=== PATIENT | male | born 1970 | race African-American/Black ===

== ENCOUNTER 2017-11-29 11:22 | Inpatient (IN) | payer OTHER ==
[2017-11-29 11:41] VITALS: BMI 29.1
--- NOTE | 2017-11-29 15:01 | HP ---
CIWA Score - CIWA Score Nausea/Vomitin Muscle Tremors: 2 Anxiety: 1-Mildly Anxious Agitation: 1-Slight > Activity Paroxysmal Sweats: 2 Orientation: 0-Oriented Tacttile Disturbances: 2-Mild Itch/Numbness/Burn Auditory Disturbances: 0-None Visual Disturbances: 0-None Headache: 2-Mild CIWA-Ar Total Score: [address] [facility] Chief Complaint: ETOH withdrawal symptoms Allergies/Adverse Reactions: Allergies Allergy/AdvReac Type Severity Reaction Status Date / Time No Known Allergies Allergy Verified 11/29/17 11:52 History of Present Illness: Patient presents with ETOH withdrawal symptoms. Patient started drinking at age 13. Drinks up to 1/2 litre of Randi Lam and 12 24 ounce cans of coors light. Pt has seizures from ETOH withdrawals. Last seizure 09/2017. Last drink was this morning at 8am. Patient also smokes cocaine since age 31. Last time he used cocaine was this morning. Smokes up to 400-500 dollars daily. PMH asthma. Denies SI/HI and suicide attempts. - Ebola screening Have you traveled outside of the country in the last 21 days: No Have you had contact with anyone from an Ebola affected area: No Have you been sick,other than usual withdrawal symptoms: No Do you have a fever: No - Review of Systems Constitutional: Chills, Changes in sleep, Unintentional Wgt. Loss EENT: reports: No Symptoms Reported Respiratory: reports: No Symptoms reported Cardiac: reports: No Symptoms Reported GI: reports: Diarrhea, Nausea, Poor Fluid Intake, Vomiting, Abdominal cramping : reports: No Symptoms Reported Musculoskeletal: reports: Back Pain Integumentary: reports: Sweating Neuro: reports: Headache, Numbness, Seizure, Tremors Endocrine: reports: Unexplained Weight Loss Hematology: reports: No Symptoms Reported Psychiatric: reports: Orientated x3, Anxious, Depressed Patient History - Patient Medical History Hx Anemia: No Hx Asthma: Yes (PT IS ON MDI) Hx Chronic Obstructive Pulmonary Disease (COPD): No Hx Cancer: No Hx Cardiac Disorders: No Hx Congestive Heart Failure: No Hx Hypertension: No Hx Hypercholesterolemia: No Hx Pacemaker: No HX Cerebrovascular Accident: No Hx Seizures: Yes (SEPTEMBER 2017 R/T ALCOHOL WITHDRAWAL) Hx Dementia: No Hx Diabetes: No Hx Gastrointestinal Disorders: No Hx Liver Disease: No Hx Genitourinary Disorders: No Hx Sexually Transmitted Disorders: No Hx Renal Disease (ESRD): No Hx Thyroid Disease: No Hx Human Immunodeficiency Virus (HIV): No (11/21/17 and reported negative. Refused testing) Hx Hepatitis C: No (Refused testing) Hx Depression: No Hx Suicide Attempt: No (DENIES S/H IDEATIONS) Hx Bipolar Disorder: No Hx Schizophrenia: No - Patient Surgical History Past Surgical History: No Hx Neurologic Surgery: No Hx Cataract Extraction: No Hx Cardiac Surgery: No Hx Lung Surgery: No Hx Breast Surgery: No Hx Breast Biopsy: No Hx Abdominal Surgery: No Hx Appendectomy: No Hx Cholecystectomy: No Hx Genitourinary Surgery: No Hx Orthopedic Surgery: No Anesthesia Reaction: No - PPD History Documented Results: Negative w/proof Implanted On Prior R Admission?: Yes Date: 02/14/12 Results: NEGATIVE PPD to be Administered?: Yes - Smoking Cessation Smoking history: Current every day smoker Have you smoked in the past 12 months: Yes Aproximately how many cigarettes per day: 20 Hx Chewing Tobacco Use: No Initiated information on smoking cessation: Yes 'Breaking Loose' booklet given: 11/29/17 - Substance & Tx. History Hx Alcohol Use: Yes Hx Substance Use: Yes Substance Use Type: Alcohol, Cocaine Hx Substance Use Treatment: Yes (Last detox here 2011) - Substances Abused Alcohol Route: Oral Frequency: Daily Amount used: 1/2 LITER RANDI TIEN, 2-6PACKS OF 24 OUNCES OF COORS Age of first use: 13 Date of Last Use: 11/29/17 Cocaine Route: Oral Frequency: Daily Amount used: $500 Age of first use: 31 Date of Last Use: 11/29/17 Family Disease History - Family Disease History Family Disease History: Heart Disease: Mother (, dementia) Admission Physical Exam S - Vital Signs Vital Signs: Vital Signs - 24 hr 11/29/17 11:38 Temperature 97.8 F Pulse Rate 73 Respiratory 18 Rate Blood Pressure 155/79 - Physical General Appearance: Yes: No Apparent Distress, Appropriately Dressed, Tremorous , Sweating, Anxious HEENTM: Yes: EOMI, Hearing grossly Normal, Normal ENT Inspection, Normocephalic , Normal Voice, DOMENIC, Pharynx Normal Respiratory: Yes: Chest Non-Tender, Lungs Clear, Normal Breath Sounds, No Respiratory Distress, No Accessory Muscle Use Neck: Yes: Within Normal Limits, No masses,lesions,Nodules, Supple Breast: Yes: Breast Exam Deferred Cardiology: Yes: Regular Rhythm, Regular Rate, S1, S2 Abdominal: Yes: Normal Bowel Sounds, Non Tender, Soft Genitourinary: Yes: Within Normal Limits Back: Yes: Normal Inspection, Muscle Spasm Musculoskeletal: Yes: full range of Motion, Gait Steady, Back pain Extremities: Yes: Normal Inspection, Normal Range of Motion, Non-Tender, Tremors Neurological: Yes: rn medical surgical II-XII NML intact, Fully Oriented, Alert, Motor Strength 5/5, Normal Response, Depressed Affect Integumentary: Yes: Normal Color, Warm, Moist Lymphatic: Yes: Within Normal Limits - Diagnostic (1) Alcohol dependence with uncomplicated withdrawal Current Visit: Yes Status: Acute (2) Asthma Current Visit: Yes Status: Chronic Qualifiers: Asthma severity: mild (3) Anxiety Current Visit: Yes Status: Acute (4) Tobacco dependence Current Visit: Yes Status: Chronic Cleared for Admission S - Detox or Rehab [facility] Level of Care: Medically Managed Detox Regimen/Protocol: Valium S Breath Alcohol Content Breath Alcohol Content: 0 Urine Drug Screen - Results Drug Screen Negative: No Urine Drug Screen Results: LUIGI-Cocaine
[2017-11-29] MEDS ORDERED: LOPERAMIDE HCL 2 MG CAPSULE PO PRN (15:11)
[2017-11-29] MEDS ORDERED: MENTHOL/PHENOL 1 EACH UD MM PRN (15:11)
[2017-11-29] MEDS ORDERED: MAGNESIUM HYDROX 2400MG/30ML ORAL SUSPENSION 30 ML CUP PO PRN (15:11)
[2017-11-29] MEDS ORDERED: MAG HYDROX/AL HYDROX/SIMETH 30 ML UNIT-DOSE CUP PO PRN (15:11)
[2017-11-29] MEDS ORDERED: MAGNESIUM CITRATE 300 ML BOTTLE PO PRN (15:11)
[2017-11-29] MEDS ORDERED: P-EPHED 60MG/TRIPROLIDI 2.5MG TABLET PO PRN (15:11)
[2017-11-29] MEDS ORDERED: ACETAMINOPHEN 325 MG TABLET (FP) PO PRN (15:11)
[2017-11-29] MEDS ORDERED: IBUPROFEN 400 MG TABLET (FP) PO PRN (15:11)
[2017-11-29] MEDS ORDERED: guaiFENesin/D-METHORPHAN HB 10 ML UNIT-DOSE CUPS PO PRN (15:11)
[2017-11-29] MEDS ORDERED: hydrOXYzine PAMOATE 50 MG CAPSULE (FP) PO PRN (15:11)
[2017-11-29] MEDS ORDERED: NICOTINE POLACRILEX 2 MG GUM BUC PRN (15:11)
[2017-11-29] MEDS ORDERED: ALBUTEROL SO4 18 GM HFA INHALER IH PRN (15:14)
[2017-11-29] MEDS ORDERED: chlordiazePOXIDE HCL 25 MG CAPSULE PO PRN (18:27)
[2017-11-29] MEDS ORDERED: chlordiazePOXIDE HCL 25 MG CAPSULE PO ONE (19:00)
[2017-11-29] MEDS ORDERED: MELATONIN 5 MG TABLETS PO PRN (22:00)
[2017-11-29 22:27] LABS: URINE APPEARANCE CLEAR; URINE BILIRUBIN NEGATIVE (<2.0 mg/dL); URINE COLOR LTYELLOW; URINE GLUCOSE (UA) NEGATIVE (NEGATIVE); URINE KETONE NEGATIVE (NEGATIVE); URINE LEUK ESTERASE TRACE (NEGATIVE); URINE NITRITE NEGATIVE (NEGATIVE); URINE PROTEIN NEGATIVE (NEGATIVE); URINE UROBILINOGEN NEGATIVE mg/dL (0.2-1.0)
[2017-11-29 22:40] LABS: EPI CELLS RARE /HPF (FEW); URINE MUCUS RARE
[2017-11-29] MEDS: chlordiazePOXIDE HCL 25 MG CAPSULE PO SCH (22:43)
[2017-11-29] MEDS: THIAMINE HCL 100 MG TABLET (FP) PO SCH (22:44)
[2017-11-30] MEDS: chlordiazePOXIDE HCL 25 MG CAPSULE PO SCH ×4 (05:23→22:15)
--- NOTE | 2017-11-30 09:23 | EKG ---
Test Reason : Blood Pressure : / mmHG Vent. Rate : 067 BPM Atrial Rate : 067 BPM P-R Int : 132 ms QRS Dur : 086 ms QT Int : 394 ms P-R-T Axes : 034 070 049 degrees QTc Int : 416 ms NORMAL SINUS RHYTHM NORMAL ECG NO PREVIOUS ECGS AVAILABLE Confirmed by GIANNA SILVERMAN, ROCIO ([id number]) on 11/30/2017 9:23:05 AM Referred By: Confirmed By:ROCIO KATZ MD
[2017-11-30 09:57] LABS: HEMATOCRIT 41.4 % (35.4-49); HEMOGLOBIN 14.1 GM/dL (11.7-16.9); MCH 30.2 pg (25.7-33.7); MEAN CELL VOLUME 88.9 fl (80-96); MEAN PLT VOLUME 11.9 fl (7.5-11.1); PLATELET COUNT 148 K/MM3 (134-434); RBC 4.66 M/mm3 (4.00-5.60); WHITE BLOOD COUNT 6.1 K/mm3 (4.0-10.0)
[2017-11-30 10:38] LABS: ALBUMIN 3.4 g/dl (3.4-5.0); ANION GAP 6 (8-16); BLOOD UREA NITROGEN 19 mg/dL (7-18); CALCIUM 8.8 mg/dL (8.5-10.1); CHLORIDE 105 mmol/L (98-107); CO2 29 mmol/L (21-32); GLUCOSE,RANDOM 98 mg/dL (74-106); POTASSIUM 4.2 mmol/L (3.5-5.1); SODIUM 140 mmol/L (136-145)
[2017-11-30 10:42] LABS: ALK PHOS 101 U/L (45-117); BILIRUBIN,TOTAL 0.3 mg/dL (0.2-1.0); CREATININE 1.4 mg/dL (0.7-1.3); SGOT/AST 15 U/L (15-37); SGPT/ALT 19 U/L (12-78); TOT PROT 7.1 g/dl (6.4-8.2)
[2017-11-30] MEDS: PRENATAL VITAMINS W/ FOLIC ACID TABLET (FP) PO SCH (10:43)
[2017-11-30] MEDS: NICOTINE 21 MG/24 HOURS TOPICAL PATCH TD SCH (10:44)
--- NOTE | 2017-11-30 21:08 | PN ---
[facility] CIWA - CIWA Score Nausea/Vomitin-No Nausea/No Vomiting Muscle Tremors: 2 Anxiety: 4-Mod. Anxious/Guarded Agitation: 3 Paroxysmal Sweats: 3 Orientation: 0-Oriented Tacttile Disturbances: 1-Very Mild Itch/Numbness Auditory Disturbances: 0-None Visual Disturbances: 2-Mild Sensitivity Headache: 0-None Present CIWA-Ar Total Score: 15 [facility] Progress Note (SOAP) Subjective: Fatigue, Anxious, Sweating, Tremors. Objective: PATIENT A & O X 3. NO ACUTE DISTRESS. 11/30/17 21:04 Vital Signs Temperature 96.7 F L 11/30/17 17:47 Pulse Rate 62 11/30/17 17:47 Respiratory Rate 18 11/30/17 17:47 Blood Pressure 120/69 11/30/17 17:47 O2 Sat by Pulse Oximetry (%) Laboratory Tests 11/29/17 11/30/17 11/30/17 15:40 06:20 06:20 WBC 6.1 RBC 4.66 Hgb 14.1 Hct 41.4 MCV 88.9 MCH 30.2 MCHC 34.0 RDW 13.0 Plt Count 148 MPV 11.9 H Sodium 140 Potassium 4.2 Chloride 105 Carbon Dioxide 29 Anion Gap 6 L BUN 19 H D Creatinine 1.4 H D Creat Clearance w eGFR 54.09 Random Glucose 98 Calcium 8.8 Total Bilirubin 0.3 AST 15 ALT 19 Alkaline Phosphatase 101 D Total Protein 7.1 Albumin 3.4 Urine Color Ltyellow Urine Appearance Clear Urine pH 6.0 Ur Specific [place] 1.011 Urine Protein Negative Urine Glucose (UA) Negative Urine Ketones Negative Urine Blood Negative Urine Nitrite Negative Urine Bilirubin Negative Urine Urobilinogen Negative Ur Leukocyte Esterase Trace Urine WBC (Auto) 2 Urine RBC (Auto) <1 Ur Epithelial Cells Rare Urine Mucus Rare LABS NOTED. RPR RESULT PENDING. 11/30/17 21:06 Assessment: 11/30/17 21:04 WITHDRAWAL SYMPTOMS. Plan: CONTINUE DETOX. INCREASE DAILY PO FLUID INTAKE. D/C MAGNESIUM-CONTAINING MEDS. FOR ABNORMAL ADMISSION RENAL LAB VALUES. BMP ON 12/02/2017 FOR ABNORMAL ADMISSION RENAL LAB VALUES.
[2017-11-30] MEDS: THIAMINE HCL 100 MG TABLET (FP) PO SCH (22:15)
[2017-12-01] MEDS: chlordiazePOXIDE HCL 25 MG CAPSULE PO SCH ×3 (06:11→17:57)
[2017-12-01] MEDS: PRENATAL VITAMINS W/ FOLIC ACID TABLET (FP) PO SCH (10:43)
[2017-12-01] MEDS: NICOTINE 21 MG/24 HOURS TOPICAL PATCH TD SCH (10:45)
--- NOTE | 2017-12-01 12:45 | PN ---
[facility] CIWA - CIWA Score Nausea/Vomitin-No Nausea/No Vomiting Muscle Tremors: 2 Anxiety: 2 Agitation: 2 Paroxysmal Sweats: 2 Orientation: 0-Oriented Tacttile Disturbances: 1-Very Mild Itch/Numbness Auditory Disturbances: 0-None Visual Disturbances: 0-None Headache: 0-None Present CIWA-Ar Total Score: 9 [facility] Progress Note (SOAP) Subjective: interrupted sleep, anxious, weight loss Objective: 12/01/17 12:43 Vital Signs Temperature 97.0 F L 12/01/17 09:07 Pulse Rate 62 12/01/17 09:07 Respiratory Rate 18 12/01/17 09:07 Blood Pressure 111/71 12/01/17 09:07 O2 Sat by Pulse Oximetry (%) Laboratory Last Values WBC 6.1 K/mm3 (4.0-10.0) 11/30/17 06:20 RBC 4.66 M/mm3 (4.00-5.60) 11/30/17 06:20 Hgb 14.1 GM/dL (11.7-16.9) 11/30/17 06:20 Hct 41.4 % (35.4-49) 11/30/17 06:20 MCV 88.9 fl (80-96) 11/30/17 06:20 MCH 30.2 pg (25.7-33.7) 11/30/17 06:20 MCHC 34.0 g/dl (32.0-35.9) 11/30/17 06:20 RDW 13.0 % (11.9-15.9) 11/30/17 06:20 Plt Count 148 K/MM3 (134-434) 11/30/17 06:20 MPV 11.9 fl (7.5-11.1) H 11/30/17 06:20 Sodium 140 mmol/L (136-145) 11/30/17 06:20 Potassium 4.2 mmol/L (3.5-5.1) 11/30/17 06:20 Chloride 105 mmol/L (98-107) 11/30/17 06:20 Carbon Dioxide 29 mmol/L (21-32) 11/30/17 06:20 Anion Gap 6 (8-16) L 11/30/17 06:20 BUN 19 mg/dL (7-18) H D 11/30/17 06:20 Creatinine 1.4 mg/dL (0.7-1.3) H D 11/30/17 06:20 Creat Clearance w eGFR 54.09 (>60) 11/30/17 06:20 Random Glucose 98 mg/dL (74-106) 11/30/17 06:20 Calcium 8.8 mg/dL (8.5-10.1) 11/30/17 06:20 Total Bilirubin 0.3 mg/dL (0.2-1.0) 11/30/17 06:20 AST 15 U/L (15-37) 11/30/17 06:20 ALT 19 U/L (12-78) 11/30/17 06:20 Alkaline Phosphatase 101 U/L (45-117) D 11/30/17 06:20 Total Protein 7.1 g/dl (6.4-8.2) 11/30/17 06:20 Albumin 3.4 g/dl (3.4-5.0) 11/30/17 06:20 Urine Color Ltyellow 11/29/17 15:40 Urine Appearance Clear 11/29/17 15:40 Urine pH 6.0 (5.0-8.0) 11/29/17 15:40 Ur Specific [place] 1.011 (1.001-1.035) 11/29/17 15:40 Urine Protein Negative (NEGATIVE) 11/29/17 15:40 Urine Glucose (UA) Negative (NEGATIVE) 11/29/17 15:40 Urine Ketones Negative (NEGATIVE) 11/29/17 15:40 Urine Blood Negative (NEGATIVE) 11/29/17 15:40 Urine Nitrite Negative (NEGATIVE) 11/29/17 15:40 Urine Bilirubin Negative (<2.0 mg/dL) 11/29/17 15:40 Urine Urobilinogen Negative mg/dL (0.2-1.0) 11/29/17 15:40 Ur Leukocyte Esterase Trace (NEGATIVE) 11/29/17 15:40 Urine WBC (Auto) 2 /hpf (3-5) 11/29/17 15:40 Urine RBC (Auto) <1 /hpf (0-3) 11/29/17 15:40 Ur Epithelial Cells Rare /HPF (FEW) 11/29/17 15:40 Urine Mucus Rare 11/29/17 15:40 RPR Titer Nonreactive (NONREACTIVE) 11/30/17 06:20 Assessment: 12/01/17 12:43 AOx3 no apparent distress no adventitious breath sounds full ROM - withdrawal symptoms Plan: increase fluids nutrition consult: weight loss and feels food on the unit not filling continue detox continue to monitor
[2017-12-01 17:19] VITALS: BP 134/88; PULSE 86; TEMP 97.4
--- NOTE | 2017-12-01 17:56 | PN ---
S Progress Note Note: Per RN Pat, pt insisting on leaving. Unreceptive to encouragement or education to stay and refused to wait for provider eval. per RN
--- NOTE | 2017-12-01 17:58 | DS ---
[facility] Detox Discharge Summary Admission Date: 11/29/17 Discharge Date: 12/01/17 - History Additional Comments: pt left AMA Provider did not see pt as he did not want to wait - Physical Exam Results Vital Signs: Vital Signs Temperature 97.4 F L 12/01/17 17:19 Pulse Rate 86 12/01/17 17:19 Respiratory Rate 18 12/01/17 17:19 Blood Pressure 134/88 12/01/17 17:19 O2 Sat by Pulse Oximetry (%) - Medication Discharge Medications: Ambulatory Orders Albuterol Sulfate Inhaler - [Ventolin Hfa Inhaler -] 1 - 2 inh PO QID PRN - AMA Did Patient Leave Against Medical Advice: Yes
[2017-12-01] MEDS ORDERED: chlordiazePOXIDE 5 MG CAPSULE PO SCH (23:00)
[2017-12-02] MEDS ORDERED: chlordiazePOXIDE HCL 10 MG CAPSULE PO SCH (23:00)
== END 2017-12-01 18:49 | disposition left against medical advice (07) | DRG 770 ==
LOC: YASAS 11:22 → Y3N 15:27
PROVIDERS: ADMIT Family Medicine Addiction Medicine; ATTEND Family Medicine Addiction Medicine
PROC: HZ2ZZZZ Detoxification Services for Substance Abuse Treatment (ICD-10-PCS; principal; 2017-11-29)
DX: F10.230 Alcohol dependence with withdrawal, uncomplicated (principal); F17.210 Nicotine dependence, cigarettes, uncomplicated; F41.9 Anxiety disorder, unspecified; J45.20 Mild intermittent asthma, uncomplicated; G40.509 Epileptic seizures related to external causes, not intractable, without status epilepticus; R63.4 Abnormal weight loss; Z68.29 Body mass index [BMI] 29.0-29.9, adult
CPT/HCPCS: 36415; 80053; 81003; 81015; 85027; 86593; 93005; 93010

== ENCOUNTER 2019-04-13 13:20 | Inpatient (IN) | payer OTHER ==
[2019-04-13 14:49] VITALS: BMI 32.3
--- NOTE | 2019-04-13 16:56 | HP ---
CIWA Score Nausea/Vomitin Muscle Tremors: 2 Anxiety: 2 Agitation: 1-Slight > Activity Paroxysmal Sweats: 1-Minimal Palms Moist Orientation: 0-Oriented Tacttile Disturbances: 0-None Auditory Disturbances: 1-Very Mild Visual Disturbances: 1-Very Mild Sensitivity Headache: 2-Mild CIWA-Ar Total Score: 12 - Admission Criteria [facility] Guidelines: Admission for Medically Managed Detox: Requires at least one of the followin. CIWA greater than 12 2. Seizures within the past 24 hours 3. Delirium tremens within the past 24 hours 4. Hallucinations within the past 24 hours 5. Acute intervention needed for co occurring medical disorder 6. Acute intervention needed for co occurring psychiatric disorder 7. Severe withdrawal that cannot be handled at a lower level of care (continued vomiting, continued diarrhea, abnormal vital signs) requiring intravenous medication and/or fluids 8. Admitting History and Physical - Smoking History Smoking history: Current every day smoker Have you smoked in the past 12 months: Yes Aproximately how many cigarettes per day: 20 - Alcohol/Substance Use Hx Alcohol Use: Yes Admission ROS [facility] - HPI Chief Complaint: Detox alcohol Allergies/Adverse Reactions: Allergies Allergy/AdvReac Type Severity Reaction Status Date / Time No Known Allergies Allergy Verified 04/13/19 14:43 History of Present Illness: 48 year old male with a history of asthma, umbilical hernia, and alcohol and cocaine dependence here for alcohol detox. Last here in 11/2017 for detox. Reports being sober for 7 months before relapse. Wants to go to [facility] half-way rehab. Was in hospital at [place] yesterday for dehydration. Alcohol: 1 liter of Arelis Lam daily and 2 6 packs of 24 oz Coors Light, has had withdrawal seizures, started drinking at age 13; has had withdrawal seizure (last one in April). Cocaine: $150 every other day, sniffs; never injected Benzodiazepine: denies Living Situation: lives in [place] [address] with fiance Work: former [employer] Family: has 7 grown children, is close with them Exam Limitations: No Limitations - Ebola screening Have you traveled outside of the country in the last 21 days: No Have you had contact with anyone from an Ebola affected area: No Do you have a fever: No - Review of Systems Constitutional: Chills, Diaphoresis, Loss of Appetite, Night Sweats EENT: reports: Blurred Vision, Nose Congestion, Throat Pain Respiratory: reports: No Symptoms reported Cardiac: reports: No Symptoms Reported GI: reports: Diarrhea, Nausea : reports: No Symptoms Reported Musculoskeletal: reports: No Symptoms Reported Integumentary: reports: No Symptoms Reported Neuro: reports: Headache, Tremors Endocrine: reports: No Symptoms Reported Hematology: reports: No Symptoms Reported Psychiatric: reports: Judgement Intact, Mood/Affect Appropiate, Orientated x3, Anxious Patient History - Patient Medical History Hx Anemia: No Hx Asthma: Yes (PT IS ON MDI) Hx Chronic Obstructive Pulmonary Disease (COPD): No Hx Cancer: No Hx Cardiac Disorders: No Hx Congestive Heart Failure: No Hx Hypertension: No Hx Hypercholesterolemia: No Hx Pacemaker: No HX Cerebrovascular Accident: No Hx Seizures: Yes (SEPTEMBER 2017 R/T ALCOHOL WITHDRAWAL) Hx Dementia: No Hx Diabetes: No Hx Gastrointestinal Disorders: No Hx Liver Disease: No Hx Genitourinary Disorders: No Hx Sexually Transmitted Disorders: No Hx Renal Disease (ESRD): No Hx Thyroid Disease: No Hx Human Immunodeficiency Virus (HIV): No (11/21/17 and reported negative. Refused testing) Hx Hepatitis C: No (Refused testing) Hx Depression: No Hx Suicide Attempt: No (DENIES S/H IDEATIONS) Hx Bipolar Disorder: No Hx Schizophrenia: No - Patient Surgical History Past Surgical History: No Hx Neurologic Surgery: No Hx Cataract Extraction: No Hx Cardiac Surgery: No Hx Lung Surgery: No Hx Breast Surgery: No Hx Breast Biopsy: No Hx Abdominal Surgery: No Hx Appendectomy: No Hx Cholecystectomy: No Hx Genitourinary Surgery: No Hx Section: No Hx Orthopedic Surgery: No Anesthesia Reaction: No - PPD History Date: 12/01/17 Results: NEGATIVE - Smoking Cessation Smoking history: Current every day smoker Have you smoked in the past 12 months: Yes Aproximately how many cigarettes per day: 20 Hx Chewing Tobacco Use: No Initiated information on smoking cessation: Yes 'Breaking Loose' booklet given: 04/13/19 - Substances abused Alcohol Substance route: Oral Frequency: Daily Amount used: 1 liter of arelis lam & 12 coors light Age of first use: 13 Date of last use: 04/13/19 Cocaine Substance route: Inhalation Frequency: Daily Amount used: $100-150 Age of first use: 31 Date of last use: 04/11/19 Admission Physical Exam [facility] - Vital Signs Vital Signs: Vital Signs - 24 hr 04/13/19 14:44 Temperature 99.0 F Pulse Rate 85 Respiratory 20 Rate Blood Pressure 124/68 - Physical General Appearance: Yes: No Apparent Distress, Nourished, Appropriately Dressed HEENTM: Yes: EOMI Respiratory: Yes: Chest Non-Tender, Lungs Clear Breast: Yes: Within Normal Limits Cardiology: Yes: Regular Rhythm, Regular Rate Abdominal: Yes: Normal Bowel Sounds, Non Tender, Flat, Soft Extremities: Yes: Normal Capillary Refill, Normal Inspection, Normal Range of Motion, Non-Tender 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, Fully Oriented, Alert, Motor Strength 5/5, Normal Mood/Affect Integumentary: Yes: Dry, Warm - Diagnostic (1) Alcohol dependence with uncomplicated withdrawal Current Visit: No Status: Acute (2) Anxiety Current Visit: No Status: Acute (3) Asthma Current Visit: No Status: Chronic Qualifiers: Asthma severity: mild Asthma persistence: intermittent Asthma complication type: uncomplicated Qualified Code(s): J45.20 - Mild intermittent asthma, uncomplicated Cleared for Admission [facility] - Detox or Rehab [facility] Level of Care: Medically Managed Breathalyzer - Breathalyzer Breathalyzer: 0 Urine Drug Screen - Test Device Lot number: [id number] Expiration date: 11/14/20 - Control Is test valid?: Yes - Results Drug screen NEGATIVE: No Urine drug screen results: LUIGI-Cocaine, BZO-Benzodiazepines Inpatient Rehab Admission - Rehab Decision to Admit Inpatient rehab admission?: No
[2019-04-13] MEDS ORDERED: chlordiazePOXIDE HCL 25 MG CAPSULE PO PRN (17:13)
[2019-04-13] MEDS ORDERED: MAG HYDROX/AL HYDROX/SIMETH 30 ML UNIT-DOSE CUP PO PRN (17:13)
[2019-04-13] MEDS ORDERED: ACETAMINOPHEN 325 MG TABLET (FP) PO PRN (17:13)
[2019-04-13] MEDS ORDERED: MAGNESIUM HYDROX 2400MG/30ML ORAL SUSPENSION 30 ML CUP PO PRN (17:13)
[2019-04-13] MEDS ORDERED: BISMUTH SUBSALICYLATE 524 MG/30 ML UD PO PRN (17:13)
[2019-04-13] MEDS ORDERED: MAGNESIUM CITRATE 300 ML BOTTLE PO PRN (17:13)
[2019-04-13] MEDS ORDERED: hydrOXYzine PAMOATE 25 MG CAPSULE (FP) PO PRN (17:13)
[2019-04-13] MEDS ORDERED: IBUPROFEN 400 MG TABLET (FP) PO PRN (17:13)
[2019-04-13] MEDS ORDERED: chlordiazePOXIDE HCL 25 MG CAPSULE PO ONE (17:13)
[2019-04-13] MEDS ORDERED: METHOCARBAMOL 500 MG TABLET PO PRN (17:13)
[2019-04-13] MEDS ORDERED: ALBUTEROL SO4 8 GM HFA INHALER IH PRN (17:14)
--- NOTE | 2019-04-13 17:18 | PN ---
Teaching Attending Note Name of Resident: Spencer Jensen ATTENDING PHYSICIAN STATEMENT I saw and evaluated the patient. I reviewed the resident's note and discussed the case with the resident. I agree with the resident's findings and plan as documented. SUBJECTIVE: 48 yo here for alcohol detox. Was seen at [facility] yaritza- given benzo here for detox. h/o withdrawal Sz when he abruptly stopped alcohol Also uses cocaine. OBJECTIVE: Vital Signs - 24 hr 04/13/19 14:44 Temperature 99.0 F Pulse Rate 85 Respiratory 20 Rate Blood Pressure 124/68 alert and oriented ASSESSMENT AND PLAN: alcohol use disorder- alcohol detox protocol
[2019-04-13] MEDS ORDERED: diazePAM 5 MG TABLET PO ONE (18:00)
[2019-04-13] MEDS: THIAMINE HCL 100 MG TABLET (FP) PO SCH (22:29)
[2019-04-13] MEDS: diazePAM 5 MG TABLET PO SCH (22:29)
[2019-04-13] MEDS: MENTHOL/PHENOL 1 EACH UD MM PRN (22:31)
[2019-04-13] MEDS: ACETAMINOPHEN 325 MG TABLET (FP) PO PRN (22:47)
[2019-04-13] MEDS ORDERED: chlordiazePOXIDE HCL 25 MG CAPSULE PO SCH (23:00)
[2019-04-14] MEDS: diazePAM 5 MG TABLET PO SCH ×4 (06:31→22:13)
[2019-04-14] MEDS: MENTHOL/PHENOL 1 EACH UD MM PRN ×4 (06:52→13:36)
[2019-04-14] MEDS: ACETAMINOPHEN 325 MG TABLET (FP) PO PRN (06:55)
[2019-04-14 09:55] LABS: HEMATOCRIT 42.1 % (35.4-49); HEMOGLOBIN 13.8 GM/dL (11.7-16.9); MCH 29.9 pg (25.7-33.7); MCHC 32.7 g/dl (32.0-35.9); MEAN CELL VOLUME 91.3 fl (80-96); MEAN PLT VOLUME 10.6 fl (7.5-11.1); PLATELET COUNT 157 K/MM3 (134-434); RBC 4.61 M/mm3 (4.00-5.60); RDW 13.5 % (11.9-15.9); WHITE BLOOD COUNT 8.6 K/mm3 (4.0-10.0)
[2019-04-14 10:13] LABS: ALBUMIN 3.2 g/dl (3.4-5.0); BILIRUBIN,TOTAL 0.3 mg/dL (0.2-1); CALCIUM 8.8 mg/dL (8.5-10.1); CREATININE 1.4 mg/dL (0.55-1.3); POTASSIUM 4.8 mmol/L (3.5-5.1); TOT PROT 6.9 g/dl (6.4-8.2)
[2019-04-14] MEDS: PRENATAL VITAMINS W/ FOLIC ACID TABLET (FP) PO SCH (10:39)
--- NOTE | 2019-04-14 14:19 | PN ---
[facility] CIWA - CIWA Score Nausea/Vomitin-Mild Nausea/No Vomiting Muscle Tremors: 2 Anxiety: 2 Agitation: 2 Paroxysmal Sweats: No Perspiration Orientation: 0-Oriented Tacttile Disturbances: 1-Very Mild Itch/Numbness Auditory Disturbances: 0-None Visual Disturbances: 0-None Headache: 2-Mild CIWA-Ar Total Score: 10 S Progress Note (SOAP) Subjective: alert,irritable,anxious,interrupted sleep,tremor Objective: 04/14/19 14:17 Vital Signs Temperature 97.8 F 04/14/19 13:40 Pulse Rate 54 L 04/14/19 13:40 Respiratory Rate 16 04/14/19 13:40 Blood Pressure 105/59 L 04/14/19 13:40 O2 Sat by Pulse Oximetry (%) Laboratory Last Values WBC 8.6 K/mm3 (4.0-10.0) 04/14/19 08:15 RBC 4.61 M/mm3 (4.00-5.60) 04/14/19 08:15 Hgb 13.8 GM/dL (11.7-16.9) 04/14/19 08:15 Hct 42.1 % (35.4-49) 04/14/19 08:15 MCV 91.3 fl (80-96) 04/14/19 08:15 MCH 29.9 pg (25.7-33.7) 04/14/19 08:15 MCHC 32.7 g/dl (32.0-35.9) 04/14/19 08:15 RDW 13.5 % (11.9-15.9) 04/14/19 08:15 Plt Count 157 K/MM3 (134-434) 04/14/19 08:15 MPV 10.6 fl (7.5-11.1) D 04/14/19 08:15 Sodium 142 mmol/L (136-145) 04/14/19 08:15 Potassium 4.8 mmol/L (3.5-5.1) 04/14/19 08:15 Chloride 108 mmol/L (98-107) H 04/14/19 08:15 Carbon Dioxide 28 mmol/L (21-32) 04/14/19 08:15 Anion Gap 5 MMOL/L (8-16) L 04/14/19 08:15 BUN 20.0 mg/dL (7-18) H 04/14/19 08:15 Creatinine 1.4 mg/dL (0.55-1.3) H 04/14/19 08:15 Est GFR (CKD-EPI)AfAm 67.89 04/14/19 08:15 Est GFR (CKD-EPI)NonAf 58.58 04/14/19 08:15 Random Glucose 91 mg/dL (74-106) 04/14/19 08:15 Calcium 8.8 mg/dL (8.5-10.1) 04/14/19 08:15 Total Bilirubin 0.3 mg/dL (0.2-1) 04/14/19 08:15 AST 26 U/L (15-37) 04/14/19 08:15 ALT 31 U/L (13-61) 04/14/19 08:15 Alkaline Phosphatase 105 U/L (45-117) 04/14/19 08:15 Total Protein 6.9 g/dl (6.4-8.2) 04/14/19 08:15 Albumin 3.2 g/dl (3.4-5.0) L 04/14/19 08:15 RPR Titer Nonreactive (NONREACTIVE) 04/14/19 08:15 Assessment: 04/14/19 14:18 withdrawal symptom Plan: continue detox librium regimen,encourage orl fluid
--- NOTE | 2019-04-14 14:22 | PN ---
[facility] Progress Note Note: addendum correction patient is on valium regimen not librium regimen
--- NOTE | 2019-04-14 14:59 | PN ---
[facility] Progress Note Note: patient requests to be seen by a ophthalmic nurse
[2019-04-14] MEDS: THIAMINE HCL 100 MG TABLET (FP) PO SCH (22:12)
[2019-04-14] MEDS: MELATONIN 5 MG TABLETS PO PRN (22:14)
[2019-04-15] MEDS ORDERED: chlordiazePOXIDE HCL 25 MG CAPSULE PO SCH (05:00)
[2019-04-15] MEDS: diazePAM 5 MG TABLET PO SCH ×2 (05:49→17:27)
[2019-04-15] MEDS: MENTHOL/PHENOL 1 EACH UD MM PRN (05:51)
[2019-04-15] MEDS: diazePAM 5 MG TABLET PO PRN ×3 (09:19→23:47)
[2019-04-15] MEDS: PRENATAL VITAMINS W/ FOLIC ACID TABLET (FP) PO SCH (09:20)
--- NOTE | 2019-04-15 14:41 | PN ---
S CIWA - CIWA Score Nausea/Vomitin-No Nausea/No Vomiting Muscle Tremors: 2 Anxiety: 2 Agitation: 2 Paroxysmal Sweats: No Perspiration Orientation: 0-Oriented Tacttile Disturbances: 0-None Auditory Disturbances: 0-None Visual Disturbances: 0-None Headache: 0-None Present CIWA-Ar Total Score: 6 [facility] Progress Note (SOAP) Subjective: 48 years old male admitted on 04/13/19 for alcohol withdrawal sx management treated with valium detox regimen c/o muscle spasm encourage robaxin prn c/o loose stool imodium 4 mg po x 1 Objective: 04/15/19 14:44 Vital Signs Temperature 97.1 F L 04/15/19 13:10 Pulse Rate 64 04/15/19 13:10 Respiratory Rate 18 04/15/19 13:10 Blood Pressure 130/87 04/15/19 13:10 O2 Sat by Pulse Oximetry (%) Laboratory Last Values WBC 8.6 K/mm3 (4.0-10.0) 04/14/19 08:15 RBC 4.61 M/mm3 (4.00-5.60) 04/14/19 08:15 Hgb 13.8 GM/dL (11.7-16.9) 04/14/19 08:15 Hct 42.1 % (35.4-49) 04/14/19 08:15 MCV 91.3 fl (80-96) 04/14/19 08:15 MCH 29.9 pg (25.7-33.7) 04/14/19 08:15 MCHC 32.7 g/dl (32.0-35.9) 04/14/19 08:15 RDW 13.5 % (11.9-15.9) 04/14/19 08:15 Plt Count 157 K/MM3 (134-434) 04/14/19 08:15 MPV 10.6 fl (7.5-11.1) D 04/14/19 08:15 Sodium 142 mmol/L (136-145) 04/14/19 08:15 Potassium 4.8 mmol/L (3.5-5.1) 04/14/19 08:15 Chloride 108 mmol/L (98-107) H 04/14/19 08:15 Carbon Dioxide 28 mmol/L (21-32) 04/14/19 08:15 Anion Gap 5 MMOL/L (8-16) L 04/14/19 08:15 BUN 20.0 mg/dL (7-18) H 04/14/19 08:15 Creatinine 1.4 mg/dL (0.55-1.3) H 04/14/19 08:15 Est GFR (CKD-EPI)AfAm 67.89 04/14/19 08:15 Est GFR (CKD-EPI)NonAf 58.58 04/14/19 08:15 Random Glucose 91 mg/dL (74-106) 04/14/19 08:15 Calcium 8.8 mg/dL (8.5-10.1) 04/14/19 08:15 Total Bilirubin 0.3 mg/dL (0.2-1) 04/14/19 08:15 AST 26 U/L (15-37) 04/14/19 08:15 ALT 31 U/L (13-61) 04/14/19 08:15 Alkaline Phosphatase 105 U/L (45-117) 04/14/19 08:15 Total Protein 6.9 g/dl (6.4-8.2) 04/14/19 08:15 Albumin 3.2 g/dl (3.4-5.0) L 04/14/19 08:15 RPR Titer Nonreactive (NONREACTIVE) 04/14/19 08:15 lab noted Assessment: 04/15/19 14:44 alcohol withdrawal sx Plan: continue valium detox regimen
[2019-04-15] MEDS ORDERED: LOPERAMIDE HCL 2 MG CAPSULE PO ONE (14:43)
[2019-04-15] MEDS ORDERED: diazePAM 5 MG TABLET PO ONE (22:00)
[2019-04-15] MEDS: THIAMINE HCL 100 MG TABLET (FP) PO SCH (22:55)
[2019-04-16] MEDS ORDERED: chlordiazePOXIDE HCL 10 MG CAPSULE PO PRN
[2019-04-16] MEDS ORDERED: chlordiazePOXIDE HCL 10 MG CAPSULE PO SCH (05:00)
[2019-04-16] MEDS: diazePAM 5 MG TABLET PO PRN ×2 (05:59→10:34)
[2019-04-16] MEDS ORDERED: diazePAM 5 MG TABLET PO ONE ×2 (06:00)
[2019-04-16] MEDS: PRENATAL VITAMINS W/ FOLIC ACID TABLET (FP) PO SCH (10:32)
--- NOTE | 2019-04-16 14:24 | PN ---
S CIWA - CIWA Score Nausea/Vomitin-No Nausea/No Vomiting Muscle Tremors: 1-None Visible, but [place] Anxiety: 2 Agitation: 1-Slight > Activity Paroxysmal Sweats: No Perspiration Orientation: 0-Oriented Tacttile Disturbances: 0-None Auditory Disturbances: 0-None Visual Disturbances: 0-None Headache: 0-None Present CIWA-Ar Total Score: 4 BHS Progress Note (SOAP) Subjective: 48 years old male admitted on 04/13/19 for alcohol withdrawal sx management treated with valium detox regimen patient tolerate well feeling better today discuss aftercare with counselor and hand sign writer Objective: 04/16/19 14:29 Vital Signs Temperature 97.2 F L 04/16/19 13:26 Pulse Rate 96 H 04/16/19 13:26 Respiratory Rate 18 04/16/19 13:26 Blood Pressure 119/84 04/16/19 13:26 O2 Sat by Pulse Oximetry (%) Laboratory Last Values WBC 8.6 K/mm3 (4.0-10.0) 04/14/19 08:15 RBC 4.61 M/mm3 (4.00-5.60) 04/14/19 08:15 Hgb 13.8 GM/dL (11.7-16.9) 04/14/19 08:15 Hct 42.1 % (35.4-49) 04/14/19 08:15 MCV 91.3 fl (80-96) 04/14/19 08:15 MCH 29.9 pg (25.7-33.7) 04/14/19 08:15 MCHC 32.7 g/dl (32.0-35.9) 04/14/19 08:15 RDW 13.5 % (11.9-15.9) 04/14/19 08:15 Plt Count 157 K/MM3 (134-434) 04/14/19 08:15 MPV 10.6 fl (7.5-11.1) D 04/14/19 08:15 Sodium 142 mmol/L (136-145) 04/14/19 08:15 Potassium 4.8 mmol/L (3.5-5.1) 04/14/19 08:15 Chloride 108 mmol/L (98-107) H 04/14/19 08:15 Carbon Dioxide 28 mmol/L (21-32) 04/14/19 08:15 Anion Gap 5 MMOL/L (8-16) L 04/14/19 08:15 BUN 20.0 mg/dL (7-18) H 04/14/19 08:15 Creatinine 1.4 mg/dL (0.55-1.3) H 04/14/19 08:15 Est GFR (CKD-EPI)AfAm 67.89 04/14/19 08:15 Est GFR (CKD-EPI)NonAf 58.58 04/14/19 08:15 Random Glucose 91 mg/dL (74-106) 04/14/19 08:15 Calcium 8.8 mg/dL (8.5-10.1) 04/14/19 08:15 Total Bilirubin 0.3 mg/dL (0.2-1) 04/14/19 08:15 AST 26 U/L (15-37) 04/14/19 08:15 ALT 31 U/L (13-61) 04/14/19 08:15 Alkaline Phosphatase 105 U/L (45-117) 04/14/19 08:15 Total Protein 6.9 g/dl (6.4-8.2) 04/14/19 08:15 Albumin 3.2 g/dl (3.4-5.0) L 04/14/19 08:15 RPR Titer Nonreactive (NONREACTIVE) 04/14/19 08:15 lab noted Assessment: 04/16/19 14:29 alcohol withdrawal sx Plan: continue valium detox regimen
[2019-04-16] MEDS ORDERED: LOPERAMIDE HCL 2 MG CAPSULE PO ONE (20:03)
--- NOTE | 2019-04-16 20:05 | PN ---
BHS Progress Note Note: CALL FROM NURSING , PT C/O DIARRHEA , IMODIUM X ONE ORDERED
[2019-04-16] MEDS: THIAMINE HCL 100 MG TABLET (FP) PO SCH (22:27)
[2019-04-16] MEDS: MELATONIN 5 MG TABLETS PO PRN (22:27)
[2019-04-17] MEDS ORDERED: chlordiazePOXIDE HCL 10 MG CAPSULE PO SCH (05:00)
--- NOTE | 2019-04-17 08:42 | DS ---
[facility] Detox Discharge Summary Admission Date: 04/13/19 Discharge Date: 04/17/19 - History Present History: Alcohol Dependence Additional Comments: Patient medically stable, tolerated detox well. Patient to follow up with primary care provider within 1-2 weeks. Patient reports will follow up with after care at [facility] for rehabilitation. Seek medical attention with worsening symptoms are present. Pertinent Past History: Vital Signs Temperature 96.6 F L 04/17/19 06:24 Pulse Rate 62 04/17/19 06:24 Respiratory Rate 18 04/17/19 06:24 Blood Pressure 106/70 04/17/19 06:24 O2 Sat by Pulse Oximetry (%) Laboratory Last Values WBC 8.6 K/mm3 (4.0-10.0) 04/14/19 08:15 RBC 4.61 M/mm3 (4.00-5.60) 04/14/19 08:15 Hgb 13.8 GM/dL (11.7-16.9) 04/14/19 08:15 Hct 42.1 % (35.4-49) 04/14/19 08:15 MCV 91.3 fl (80-96) 04/14/19 08:15 MCH 29.9 pg (25.7-33.7) 04/14/19 08:15 MCHC 32.7 g/dl (32.0-35.9) 04/14/19 08:15 RDW 13.5 % (11.9-15.9) 04/14/19 08:15 Plt Count 157 K/MM3 (134-434) 04/14/19 08:15 MPV 10.6 fl (7.5-11.1) D 04/14/19 08:15 Sodium 142 mmol/L (136-145) 04/14/19 08:15 Potassium 4.8 mmol/L (3.5-5.1) 04/14/19 08:15 Chloride 108 mmol/L (98-107) H 04/14/19 08:15 Carbon Dioxide 28 mmol/L (21-32) 04/14/19 08:15 Anion Gap 5 MMOL/L (8-16) L 04/14/19 08:15 BUN 20.0 mg/dL (7-18) H 04/14/19 08:15 Creatinine 1.4 mg/dL (0.55-1.3) H 04/14/19 08:15 Est GFR (CKD-EPI)AfAm 67.89 04/14/19 08:15 Est GFR (CKD-EPI)NonAf 58.58 04/14/19 08:15 Random Glucose 91 mg/dL (74-106) 04/14/19 08:15 Calcium 8.8 mg/dL (8.5-10.1) 04/14/19 08:15 Total Bilirubin 0.3 mg/dL (0.2-1) 04/14/19 08:15 AST 26 U/L (15-37) 04/14/19 08:15 ALT 31 U/L (13-61) 04/14/19 08:15 Alkaline Phosphatase 105 U/L (45-117) 04/14/19 08:15 Total Protein 6.9 g/dl (6.4-8.2) 04/14/19 08:15 Albumin 3.2 g/dl (3.4-5.0) L 04/14/19 08:15 RPR Titer Nonreactive (NONREACTIVE) 04/14/19 08:15 Patient AOx3 no acute distress EENT WNL No adventitious breath sounds full ROM no gait disturbance No edema or erythema - Physical Exam Results Vital Signs: Vital Signs Temperature 96.6 F L 04/17/19 06:24 Pulse Rate 62 04/17/19 06:24 Respiratory Rate 18 04/17/19 06:24 Blood Pressure 106/70 04/17/19 06:24 O2 Sat by Pulse Oximetry (%) - Treatment Hospital Course: Detox Protocol Followed, Detoxed Safely, Responded well, Discharged Condition Good, Rehab Referral Accepted Patient has Accepted a Rehab Referral to: [id number] - Medication Discharge Medications: Ambulatory Orders Albuterol Sulfate Inhaler - [Ventolin HFA Inhaler -] 1 - 2 inh PO QID PRN - Diagnosis (1) Alcohol dependence with uncomplicated withdrawal Current Visit: Yes Status: Acute (2) Weight loss Current Visit: Yes Status: Acute (3) Asthma Current Visit: No Status: Chronic Qualifiers: Asthma severity: mild Asthma persistence: intermittent Asthma complication type: uncomplicated Qualified Code(s): J45.20 - Mild intermittent asthma, uncomplicated (4) Tobacco dependence Current Visit: Yes Status: Chronic - AMA Did Patient Leave Against Medical Advice: No
[2019-04-17 09:03] VITALS: BP 118/86; PULSE 84; TEMP 96.1
[2019-04-18] MEDS ORDERED: chlordiazePOXIDE HCL 10 MG CAPSULE PO ONE (05:00)
== END 2019-04-17 09:00 | disposition home or self-care (01) | DRG 774 ==
LOC: YASAS 13:20 → Y3N 17:40
PROVIDERS: ADMIT Allergy & Immunology; ATTEND Allergy & Immunology
PROC: HZ2ZZZZ Detoxification Services for Substance Abuse Treatment (ICD-10-PCS; principal; 2019-04-13)
DX: F10.230 Alcohol dependence with withdrawal, uncomplicated (principal); F14.20 Cocaine dependence, uncomplicated; F17.210 Nicotine dependence, cigarettes, uncomplicated; F41.9 Anxiety disorder, unspecified; J45.20 Mild intermittent asthma, uncomplicated; R63.4 Abnormal weight loss; Z68.32 Body mass index [BMI] 32.0-32.9, adult; Z86.69 Personal history of other diseases of the nervous system and sense organs
CPT/HCPCS: 36415; 80053; 85027; 86593

== ENCOUNTER 2019-06-23 08:48 | Inpatient (IN) | payer OTHER ==
[2019-06-23 09:04] VITALS: BMI 33.2
--- NOTE | 2019-06-23 10:36 | HP ---
CIWA Score Nausea/Vomitin Muscle Tremors: 3 Anxiety: 3 Agitation: 3 Paroxysmal Sweats: 1-Minimal Palms Moist Orientation: 0-Oriented Tacttile Disturbances: 1-Very Mild Itch/Numbness Auditory Disturbances: 0-None Visual Disturbances: 0-None Headache: 2-Mild CIWA-Ar Total Score: 15 - Admission Criteria OASAS Guidelines: Admission for Medically Managed Detox: Requires at least one of the followin. CIWA greater than 12 2. Seizures within the past 24 hours 3. Delirium tremens within the past 24 hours 4. Hallucinations within the past 24 hours 5. Acute intervention needed for co occurring medical disorder 6. Acute intervention needed for co occurring psychiatric disorder 7. Severe withdrawal that cannot be handled at a lower level of care (continued vomiting, continued diarrhea, abnormal vital signs) requiring intravenous medication and/or fluids 8. Admitting History and Physical - Admission Chief Complaint: i need help to stop drinking alcohol and cocaine,. i would like to get my life back History of Present Illness: this 49 years old male with alcohol and cocaine dependence,seeking detox, withdrawal symptom, seeking detox, multiple admissions in detox,last [facility] 04/13/19 to 04/17/19 denied seizure denied syncope hypertension non compliance longest sobriety 8 years plan for rehab after detox anxiety History Source: Patient Limitations to Obtaining History: No Limitations - Past Medical History Cardiovascular: Yes: HTN (no medication) Gastrointestinal: Yes: Other (umbilical hernia) Psych: Yes: Anxiety - Smoking History Smoking history: Current every day smoker Have you smoked in the past 12 months: Yes Aproximately how many cigarettes per day: 20 - Alcohol/Substance Use Hx Alcohol Use: Yes History of Substance Use: reports: Cocaine - Social History Usual Living Arrangement: Yes: With Significant Other Occupation: [employer] Admission ROS [facility] Chief Complaint: i need help to get my life together ,need help to stop drinking alcohol,cocaine Allergies/Adverse Reactions: Allergies Allergy/AdvReac Type Severity Reaction Status Date / Time No Known Allergies Allergy Verified 06/23/19 08:57 History of Present Illness: this 49 years old male with alcohol and cocaine dependence,seeking help to stop , denied seizure denied syncope nicotine dependence nicotine dependence history of fx of left ankle and lumbar spine in 2013 longest sobriety 8 years Exam Limitations: No Limitations - Ebola screening Have you traveled outside of the country in the last 21 days: No Have you had contact with anyone from an Ebola affected area: No Do you have a fever: No - Review of Systems Constitutional: Night Sweats, Changes in sleep EENT: reports: Nose Congestion Respiratory: reports: No Symptoms reported, Other (asthma) Cardiac: reports: No Symptoms Reported GI: reports: Nausea, Poor Appetite, Vomiting, Abdominal cramping : reports: No Symptoms Reported Musculoskeletal: reports: Back Pain, Muscle Pain, Other (fx of left ankle,fx of lumbar spine in 2013) Integumentary: reports: Dryness Neuro: reports: Headache, Tremors Endocrine: reports: No Symptoms Reported Hematology: reports: No Symptoms Reported Psychiatric: reports: No Sypmtoms Reported, Judgement Intact, Mood/Affect Appropiate, Orientated x3 Patient History - Patient Medical History Hx Anemia: No Hx Asthma: Yes (on albuterol inhaler) Hx Chronic Obstructive Pulmonary Disease (COPD): No Hx Cancer: No Hx Cardiac Disorders: No Hx Congestive Heart Failure: No Hx Hypertension: Yes (no med) Hx Hypercholesterolemia: No Hx Pacemaker: No HX Cerebrovascular Accident: No Hx Seizures: No Hx Dementia: No Hx Diabetes: No Hx Gastrointestinal Disorders: No Hx Liver Disease: No Hx Genitourinary Disorders: No Hx Sexually Transmitted Disorders: No Hx Renal Disease (ESRD): No Hx Thyroid Disease: No Hx Human Immunodeficiency Virus (HIV): No (05/05 negative) Hx Hepatitis C: No Hx Depression: No Hx Suicide Attempt: No Hx Bipolar Disorder: No Hx Schizophrenia: No Other Medical History: no suicidal,no homicidal,fx of left ankle and lumbar spine - Patient Surgical History Past Surgical History: No Hx Neurologic Surgery: No Hx Cataract Extraction: No Hx Cardiac Surgery: No Hx Lung Surgery: No Hx Breast Surgery: No Hx Breast Biopsy: No Hx Abdominal Surgery: No Hx Appendectomy: No Hx Cholecystectomy: No Hx Genitourinary Surgery: No Hx Section: No Hx Orthopedic Surgery: No Anesthesia Reaction: No - PPD History Previous Implant?: Yes Documented Results: Negative w/proof Date: 04/16/19 Results: NEGATIVE 0 mm PPD to be Administered?: No - Smoking Cessation Smoking history: Current every day smoker Have you smoked in the past 12 months: Yes Aproximately how many cigarettes per day: 20 Hx Chewing Tobacco Use: No Initiated information on smoking cessation: Yes 'Breaking Loose' booklet given: 06/23/19 - Substance & Tx. History Hx Alcohol Use: Yes Hx Substance Use: Yes Substance Use Type: Alcohol, Cocaine Hx Substance Use Treatment: Yes (04/13/19 to 04/17/19 [facility]) - Substances abused Alcohol Substance route: Oral Frequency: Daily Amount used: 1 liter of arelis boyle & 12 coors light Age of first use: 13 Date of last use: 06/23/19 Cocaine Substance route: Inhalation Frequency: 3-6 times per week Amount used: $200-$300 Age of first use: 31 Date of last use: 06/22/19 Admission Physical Exam [facility] - Vital Signs Vital Signs: Vital Signs - 24 hr 06/23/19 08:51 Temperature 97.6 F Pulse Rate 99 H Respiratory 17 Rate Blood Pressure 151/91 - Physical General Appearance: Yes: Moderate Distress, Tremorous, Irritable, Sweating, Anxious HEENTM: Yes: Normal ENT Inspection, DOMENCI, Pharynx Normal Respiratory: Yes: Lungs Clear, Normal Breath Sounds, No Respiratory Distress Neck: Yes: Within Normal Limits, Supple, Trachea in good position Breast: Yes: Within Normal Limits Cardiology: Yes: Within Normal Limits, Regular Rhythm, Regular Rate, S1, S2 Abdominal: Yes: Within Normal Limits, Normal Bowel Sounds, Non Tender, Flat, Soft, Other (umbilical hernia) Genitourinary: Yes: Within Normal Limits Back: Yes: Muscle Spasm Musculoskeletal: Yes: full range of Motion, Back pain, Muscle Pain Extremities: Yes: Tremors Neurological: Yes: manager application II-XII NML intact, Alert, Motor Strength 5/5 Integumentary: Yes: Dry Lymphatic: Yes: Within Normal Limits - Diagnostic (1) Alcohol dependence with uncomplicated withdrawal Current Visit: No Status: Acute (2) Cocaine dependence Current Visit: Yes Status: Acute (3) Weight loss Current Visit: No Status: Acute (4) Asthma Current Visit: No Status: Chronic Qualifiers: Asthma severity: mild Asthma persistence: intermittent Asthma complication type: uncomplicated Qualified Code(s): J45.20 - Mild intermittent asthma, uncomplicated (5) Nicotine dependence Current Visit: Yes Status: Acute (6) Fracture of left ankle Current Visit: Yes Status: Acute (7) Low back pain Current Visit: Yes Status: Acute (8) Umbilical hernia Current Visit: Yes Status: Acute Cleared for Admission [facility] - Detox or Rehab [facility] Level of Care: Medically Managed Detox Regimen/Protocol: Ativan Breathalyzer - Breathalyzer Breathalyzer: 0.056 Urine Drug Screen - Test Device Lot number: [id number] Expiration date: 01/14/21 - Control Is test valid?: Yes - Results Drug screen NEGATIVE: Yes Urine drug screen results: LUIGI-Cocaine Inpatient Rehab Admission - Rehab Decision to Admit Inpatient rehab admission?: No
[2019-06-23] MEDS ORDERED: MAG HYDROX/AL HYDROX/SIMETH 30 ML UNIT-DOSE CUP PO PRN (10:58)
[2019-06-23] MEDS ORDERED: MELATONIN 5 MG TABLETS PO PRN (10:58)
[2019-06-23] MEDS ORDERED: IBUPROFEN 400 MG TABLET (FP) PO PRN (10:58)
[2019-06-23] MEDS ORDERED: MAGNESIUM HYDROX 2400MG/30ML ORAL SUSPENSION 30 ML CUP PO PRN (10:58)
[2019-06-23] MEDS ORDERED: MENTHOL/PHENOL 1 EACH UD MM PRN (10:58)
[2019-06-23] MEDS ORDERED: ACETAMINOPHEN 325 MG TABLET (FP) PO PRN ×2 (10:58)
[2019-06-23] MEDS ORDERED: hydrOXYzine PAMOATE 25 MG CAPSULE (FP) PO PRN (10:58)
[2019-06-23] MEDS ORDERED: MAGNESIUM CITRATE 300 ML BOTTLE PO PRN (10:58)
[2019-06-23] MEDS ORDERED: BISMUTH SUBSALICYLATE 262 MG/15 ML BTL PO PRN (10:58)
[2019-06-23] MEDS ORDERED: ALBUTEROL SO4 8 GM HFA INHALER IH PRN (11:01)
[2019-06-23] MEDS ORDERED: COLLOIDAL OATMEAL 1 BAR EACH TP PRN (11:04)
[2019-06-23] MEDS: LORazepam 1 MG TABLET PO PRN (11:47)
[2019-06-23] MEDS: NICOTINE 21 MG/24 HOURS TOPICAL PATCH TD SCH (11:47)
[2019-06-23] MEDS: NICOTINE POLACRILEX 2 MG GUM BUC PRN (11:50)
[2019-06-23 14:35] LABS: HEMOGLOBIN 12.9 GM/dL (11.7-16.9); MCH 29.4 pg (25.7-33.7); MCHC 33.1 g/dl (32.0-35.9); MEAN CELL VOLUME 88.8 fl (80-96); MEAN PLT VOLUME 10.7 fl (7.5-11.1); PLATELET COUNT 177 K/MM3 (134-434); RBC 4.39 M/mm3 (4.00-5.60); RDW 14.4 % (11.9-15.9)
[2019-06-23 15:03] LABS: ALBUMIN 3.2 g/dl (3.4-5.0); BILIRUBIN,TOTAL 0.1 mg/dL (0.2-1); BLOOD UREA NITROGEN 18.1 mg/dL (7-18); CALCIUM 8.8 mg/dL (8.5-10.1); CREATININE 1.3 mg/dL (0.55-1.3); TOT PROT 6.7 g/dl (6.4-8.2)
[2019-06-23] MEDS: LORazepam 2 MG TABLET PO SCH ×2 (18:02→23:27)
[2019-06-23] MEDS: THIAMINE HCL 100 MG TABLET (FP) PO SCH (23:27)
[2019-06-24] MEDS: LORazepam 2 MG TABLET PO SCH ×4 (05:13→22:03)
[2019-06-24] MEDS: METHOCARBAMOL 500 MG TABLET PO PRN ×2 (09:31→22:03)
--- NOTE | 2019-06-24 09:57 | PN ---
[facility] CIWA - CIWA Score Nausea/Vomitin-Mild Nausea/No Vomiting Muscle Tremors: 2 Anxiety: 2 Agitation: 2 Paroxysmal Sweats: 1-Minimal Palms Moist Orientation: 0-Oriented Tacttile Disturbances: 1-Very Mild Itch/Numbness Auditory Disturbances: 0-None Visual Disturbances: 0-None Headache: 2-Mild CIWA-Ar Total Score: 11 S Progress Note (SOAP) Subjective: alert,irritable,anxious,interrupted sleep,pain in the body Objective: 06/24/19 09:54 Vital Signs Temperature 98.2 F 06/24/19 09:10 Pulse Rate 79 06/24/19 09:10 Respiratory Rate 18 06/24/19 09:10 Blood Pressure 154/84 06/24/19 09:10 O2 Sat by Pulse Oximetry (%) Assessment: 06/24/19 09:54 Laboratory Last Values WBC 5.0 K/mm3 (4.0-10.0) 06/23/19 11:00 RBC 4.39 M/mm3 (4.00-5.60) 06/23/19 11:00 Hgb 12.9 GM/dL (11.7-16.9) 06/23/19 11:00 Hct 39.0 % (35.4-49) 06/23/19 11:00 MCV 88.8 fl (80-96) 06/23/19 11:00 MCH 29.4 pg (25.7-33.7) 06/23/19 11:00 MCHC 33.1 g/dl (32.0-35.9) 06/23/19 11:00 RDW 14.4 % (11.9-15.9) 06/23/19 11:00 Plt Count 177 K/MM3 (134-434) 06/23/19 11:00 MPV 10.7 fl (7.5-11.1) 06/23/19 11:00 Sodium 141 mmol/L (136-145) 06/23/19 11:00 Potassium 4.0 mmol/L (3.5-5.1) 06/23/19 11:00 Chloride 108 mmol/L (98-107) H 06/23/19 11:00 Carbon Dioxide 24 mmol/L (21-32) 06/23/19 11:00 Anion Gap 10 MMOL/L (8-16) 06/23/19 11:00 BUN 18.1 mg/dL (7-18) H 06/23/19 11:00 Creatinine 1.3 mg/dL (0.55-1.3) 06/23/19 11:00 Est GFR (CKD-EPI)AfAm 73.74 06/23/19 11:00 Est GFR (CKD-EPI)NonAf 63.62 06/23/19 11:00 Random Glucose 104 mg/dL (74-106) 06/23/19 11:00 Calcium 8.8 mg/dL (8.5-10.1) 06/23/19 11:00 Total Bilirubin 0.1 mg/dL (0.2-1) L 06/23/19 11:00 AST 19 U/L (15-37) 06/23/19 11:00 ALT 21 U/L (13-61) 06/23/19 11:00 Alkaline Phosphatase 106 U/L (45-117) 06/23/19 11:00 Total Protein 6.7 g/dl (6.4-8.2) 06/23/19 11:00 Albumin 3.2 g/dl (3.4-5.0) L 06/23/19 11:00 RPR Titer Nonreactive (NONREACTIVE) 06/23/19 11:00 HIV 1&2 Antibody Screen Negative 06/23/19 11:00 HIV P24 Antigen Negative 06/23/19 11:00 06/24/19 09:55 withdrawal symptom Plan: continue detox ativan regimen,bun is 18.1,encoureage oral fluid,hydration
[2019-06-24] MEDS: NICOTINE 21 MG/24 HOURS TOPICAL PATCH TD SCH (10:08)
[2019-06-24] MEDS: PRENATAL VITAMINS W/ FOLIC ACID TABLET (FP) PO SCH (10:08)
[2019-06-24 10:41] LABS: EPI CELLS 1.3 /HPF (0-5/HPF); HYALINE CASTS 5 /lpf (0-8); PH,URINE 5.5 (5.0-8.0); URINE APPEARANCE CLEAR; URINE BACTERIA 9.6 /hpf (NEGATIVE); URINE BILIRUBIN NEGATIVE (NEGATIVE); URINE COLOR YELLOW; URINE GLUCOSE (UA) NEGATIVE (NEGATIVE); URINE KETONE NEGATIVE (NEGATIVE); URINE LEUK ESTERASE NEGATIVE (NEGATIVE); URINE NITRITE NEGATIVE (NEGATIVE); URINE PROTEIN NEGATIVE (NEGATIVE); URINE RBC 11 /hpf (0-4); URINE UROBILINOGEN 0.2 mg/dL (0.2-1.0); URINE WBC 4 /hpf (0-5)
[2019-06-24] MEDS: LORazepam 1 MG TABLET PO PRN (15:16)
[2019-06-24] MEDS: THIAMINE HCL 100 MG TABLET (FP) PO SCH (22:03)
[2019-06-25] MEDS: LORazepam 1 MG TABLET PO SCH ×5 (06:04→22:01)
[2019-06-25] MEDS: METHOCARBAMOL 500 MG TABLET PO PRN ×2 (06:07→15:37)
--- NOTE | 2019-06-25 08:55 | PN ---
[facility] CIWA - CIWA Score Nausea/Vomitin-Mild Nausea/No Vomiting Muscle Tremors: 1-None Visible, but [place] Anxiety: 2 Agitation: 1-Slight > Activity Paroxysmal Sweats: 1-Minimal Palms Moist Orientation: 0-Oriented Tacttile Disturbances: 1-Very Mild Itch/Numbness Auditory Disturbances: 0-None Visual Disturbances: 0-None Headache: 3-Moderate CIWA-Ar Total Score: 10 S Progress Note (SOAP) Subjective: c/o of back pain, chills, sweats, interrupted sleep, chronic, itch Objective: 06/25/19 08:56 Vital Signs Temperature 98.2 F 06/25/19 05:00 Pulse Rate 61 06/25/19 05:00 Respiratory Rate 18 06/25/19 05:00 Blood Pressure 131/67 06/25/19 05:00 O2 Sat by Pulse Oximetry (%) Laboratory Last Values WBC 5.0 K/mm3 (4.0-10.0) 06/23/19 11:00 RBC 4.39 M/mm3 (4.00-5.60) 06/23/19 11:00 Hgb 12.9 GM/dL (11.7-16.9) 06/23/19 11:00 Hct 39.0 % (35.4-49) 06/23/19 11:00 MCV 88.8 fl (80-96) 06/23/19 11:00 MCH 29.4 pg (25.7-33.7) 06/23/19 11:00 MCHC 33.1 g/dl (32.0-35.9) 06/23/19 11:00 RDW 14.4 % (11.9-15.9) 06/23/19 11:00 Plt Count 177 K/MM3 (134-434) 06/23/19 11:00 MPV 10.7 fl (7.5-11.1) 06/23/19 11:00 Sodium 141 mmol/L (136-145) 06/23/19 11:00 Potassium 4.0 mmol/L (3.5-5.1) 06/23/19 11:00 Chloride 108 mmol/L (98-107) H 06/23/19 11:00 Carbon Dioxide 24 mmol/L (21-32) 06/23/19 11:00 Anion Gap 10 MMOL/L (8-16) 06/23/19 11:00 BUN 18.1 mg/dL (7-18) H 06/23/19 11:00 Creatinine 1.3 mg/dL (0.55-1.3) 06/23/19 11:00 Est GFR (CKD-EPI)AfAm 73.74 06/23/19 11:00 Est GFR (CKD-EPI)NonAf 63.62 06/23/19 11:00 Random Glucose 104 mg/dL (74-106) 06/23/19 11:00 Calcium 8.8 mg/dL (8.5-10.1) 06/23/19 11:00 Total Bilirubin 0.1 mg/dL (0.2-1) L 06/23/19 11:00 AST 19 U/L (15-37) 06/23/19 11:00 ALT 21 U/L (13-61) 06/23/19 11:00 Alkaline Phosphatase 106 U/L (45-117) 06/23/19 11:00 Total Protein 6.7 g/dl (6.4-8.2) 06/23/19 11:00 Albumin 3.2 g/dl (3.4-5.0) L 06/23/19 11:00 Urine Color Yellow 06/24/19 08:00 Urine Appearance Clear 06/24/19 08:00 Urine pH 5.5 (5.0-8.0) 06/24/19 08:00 Ur Specific [place] 1.022 (1.010-1.035) 06/24/19 08:00 Urine Protein Negative (NEGATIVE) 06/24/19 08:00 Urine Glucose (UA) Negative (NEGATIVE) 06/24/19 08:00 Urine Ketones Negative (NEGATIVE) 06/24/19 08:00 Urine Blood Trace (NEGATIVE) 06/24/19 08:00 Urine Nitrite Negative (NEGATIVE) 06/24/19 08:00 Urine Bilirubin Negative (NEGATIVE) 06/24/19 08:00 Urine Urobilinogen 0.2 mg/dL (0.2-1.0) 06/24/19 08:00 Ur Leukocyte Esterase Negative (NEGATIVE) 06/24/19 08:00 Urine WBC (Auto) 4 /hpf (0-5) 06/24/19 08:00 Urine RBC (Auto) 11 /hpf (0-4) 06/24/19 08:00 Urine Casts (Auto) 5 /lpf (0-8) 06/24/19 08:00 U Epithel Cells (Auto) 1.3 /HPF (0-5/HPF) 06/24/19 08:00 Urine Bacteria (Auto) 9.6 /hpf (NEGATIVE) 06/24/19 08:00 RPR Titer Nonreactive (NONREACTIVE) 06/23/19 11:00 HIV 1&2 Antibody Screen Negative 06/23/19 11:00 HIV P24 Antigen Negative 06/23/19 11:00 labs reviewed Assessment: 06/25/19 08:57 Patient AOx3 no acute distress full ROM no gait disturbance withdrawal sx Plan: increase fluids continue detox continue to monitor
[2019-06-25] MEDS ORDERED: HYDROCORTISONE 1% TOPICAL OINT 30 GM TUBE TP PRN (08:58)
[2019-06-25] MEDS ORDERED: cloNIDine HCL 0.1 MG TABLET PO ONE (09:32)
[2019-06-25] MEDS: PRENATAL VITAMINS W/ FOLIC ACID TABLET (FP) PO SCH ×2 (10:06→10:09)
[2019-06-25] MEDS: NICOTINE POLACRILEX 2 MG GUM BUC PRN (10:08)
[2019-06-25] MEDS: NICOTINE 21 MG/24 HOURS TOPICAL PATCH TD SCH (10:08)
[2019-06-25] MEDS: LORazepam 1 MG TABLET PO PRN (15:36)
[2019-06-25] MEDS: THIAMINE HCL 100 MG TABLET (FP) PO SCH (22:01)
[2019-06-26] MEDS ORDERED: LORazepam 0.5 MG TABLET PO PRN
[2019-06-26] MEDS ORDERED: LORazepam 0.5 MG TABLET PO SCH (05:00)
--- NOTE | 2019-06-26 08:51 | DS ---
[facility] Detox Discharge Summary Admission Date: 06/23/19 Discharge Date: 06/26/19 - History Present History: Alcohol Dependence, Cocaine Dependence - Physical Exam Results Vital Signs: Vital Signs Temperature 98.1 F 06/26/19 06:54 Pulse Rate 57 L 06/26/19 06:54 Respiratory Rate 18 06/26/19 06:54 Blood Pressure 100/50 L 06/26/19 06:54 O2 Sat by Pulse Oximetry (%) Pertinent Admission Physical Exam Findings: Vital Signs Temperature 98.1 F 06/26/19 06:54 Pulse Rate 57 L 06/26/19 06:54 Respiratory Rate 18 06/26/19 06:54 Blood Pressure 100/50 L 06/26/19 06:54 O2 Sat by Pulse Oximetry (%) Laboratory Tests 06/23/19 06/23/19 06/23/19 11:00 11:00 11:00 WBC 5.0 RBC 4.39 Hgb 12.9 Hct 39.0 MCV 88.8 MCH 29.4 MCHC 33.1 RDW 14.4 Plt Count 177 MPV 10.7 Sodium 141 Potassium 4.0 Chloride 108 H Carbon Dioxide 24 Anion Gap 10 BUN 18.1 H Creatinine 1.3 Est GFR (CKD-EPI)AfAm 73.74 Est GFR (CKD-EPI)NonAf 63.62 Random Glucose 104 Calcium 8.8 Total Bilirubin 0.1 L AST 19 ALT 21 Alkaline Phosphatase 106 Total Protein 6.7 Albumin 3.2 L Urine Color Urine Appearance Urine pH Ur Specific [place] Urine Protein Urine Glucose (UA) Urine Ketones Urine Blood Urine Nitrite Urine Bilirubin Urine Urobilinogen Ur Leukocyte Esterase Urine WBC (Auto) Urine RBC (Auto) Urine Casts (Auto) U Epithel Cells (Auto) Urine Bacteria (Auto) RPR Titer Nonreactive HIV 1&2 Antibody Screen HIV P24 Antigen 06/23/19 06/24/19 11:00 08:00 WBC RBC Hgb Hct MCV MCH MCHC RDW Plt Count MPV Sodium Potassium Chloride Carbon Dioxide Anion Gap BUN Creatinine Est GFR (CKD-EPI)AfAm Est GFR (CKD-EPI)NonAf Random Glucose Calcium Total Bilirubin AST ALT Alkaline Phosphatase Total Protein Albumin Urine Color Yellow Urine Appearance Clear Urine pH 5.5 Ur Specific [place] 1.022 Urine Protein Negative Urine Glucose (UA) Negative Urine Ketones Negative Urine Blood Trace Urine Nitrite Negative Urine Bilirubin Negative Urine Urobilinogen 0.2 Ur Leukocyte Esterase Negative Urine WBC (Auto) 4 Urine RBC (Auto) 11 Urine Casts (Auto) 5 U Epithel Cells (Auto) 1.3 Urine Bacteria (Auto) 9.6 RPR Titer HIV 1&2 Antibody Screen Negative HIV P24 Antigen Negative aaox3 ambulating no acute distress - Treatment Hospital Course: Detox Protocol Followed, Detoxed Safely, Responded well, Discharged Condition Good, Rehab Referral Accepted Patient has Accepted a Rehab Referral to: referred to inpatient rehab [facility] - Medication Discharge Medications: Ambulatory Orders Albuterol Sulfate Inhaler - [Ventolin HFA Inhaler -] 1 - 2 inh PO QID PRN - Diagnosis (1) Cocaine dependence Current Visit: Yes Status: Chronic Qualifiers: Substance use status: uncomplicated Qualified Code(s): F14.20 - Cocaine dependence, uncomplicated (2) Compression fx, lumbar spine Current Visit: Yes Status: Acute (3) Fracture of left ankle Current Visit: Yes Status: Acute (4) Low back pain Current Visit: Yes Status: Acute (5) Nicotine dependence Current Visit: Yes Status: Chronic Qualifiers: Nicotine product type: cigarettes Substance use status: uncomplicated Qualified Code(s): F17.210 - Nicotine dependence, cigarettes, uncomplicated (6) Umbilical hernia Current Visit: Yes Status: Acute (7) Alcohol dependence with uncomplicated withdrawal Current Visit: Yes Status: Chronic (8) Anxiety Current Visit: No Status: Acute (9) Weight loss Current Visit: No Status: Acute (10) Asthma Current Visit: No Status: Chronic Qualifiers: Asthma severity: mild Asthma persistence: intermittent Asthma complication type: uncomplicated Qualified Code(s): J45.20 - Mild intermittent asthma, uncomplicated (11) Tobacco dependence Current Visit: No Status: Chronic - AMA Did Patient Leave Against Medical Advice: No
[2019-06-26 09:49] VITALS: BP 144/92; PULSE 65; TEMP 97.6
[2019-06-27] MEDS ORDERED: LORazepam 0.5 MG TABLET PO ONE (05:00)
== END 2019-06-26 09:58 | disposition home or self-care (01) | DRG 774 ==
LOC: YASAS 08:48 → Y6N 11:16
PROVIDERS: ADMIT Allergy & Immunology; ATTEND Allergy & Immunology
PROC: HZ2ZZZZ Detoxification Services for Substance Abuse Treatment (ICD-10-PCS; principal; 2019-06-23)
DX: F10.230 Alcohol dependence with withdrawal, uncomplicated (principal); F14.20 Cocaine dependence, uncomplicated; F17.210 Nicotine dependence, cigarettes, uncomplicated; F41.9 Anxiety disorder, unspecified; M54.5 Low back pain; K42.9 Umbilical hernia without obstruction or gangrene; R63.4 Abnormal weight loss; J45.20 Mild intermittent asthma, uncomplicated; Z91.14 Patient's other noncompliance with medication regimen
CPT/HCPCS: 36415; 80053; 81003; 85027; 86593; 87389; J0735